=== PATIENT | female | born 1955 | race Caucasian/White ===

== ENCOUNTER → 2022-01-10 | Outpatient (CLI) | payer OTHER ==
--- NOTE | 2022-01-10 15:08 | RAD ---
Digital bilateral screening mammogram dated 01/10/2022. INDICATION: 66 years of age asymptomatic female patient presents for screening mammography. Screening TECHNIQUE: Digital 2-D MLO and cc views were obtained. tomography was not performed COMPARISON: 06/01/2016 08/08/2011. BREAST COMPOSITION: Category A: The breasts are predominantly fatty. FINDINGS: No suspicious mass or clustered microcalcification. No architectural distortion. Peripheral pattern i s stable. IMPRESSION: Stable bilateral mammogram RECOMMENDATION: Annual screening mammography is recommended, unless clinically indicated sooner based on symptoms or change in physical exam. BIRADS 1: NEGATIVE This study was interpreted with the benefit of Computerized Aided Detection (CAD). Recommend routine screening in one year. Patient information is entered into the reminder system with a target due date for the next screening mammogram. Mammography is the most sensitive method for finding small breast cancers, but it does not detect the m all and is not a substitute for careful clinical examination. A negative mammogram does not negate a clinically suspicious finding and should not result in delay in biopsying a clinically suspicious a bnormality. "Our facility is accredited by the [employer] Mammography Program." Electronically signed by: Drake Gu MD (01/10/2022 3:06 PM) [id number]
== END ==
LOC: MAMMO 13:32
PROVIDERS: ATTEND Family Medicine
DX: Z12.31 Encounter for screening mammogram for malignant neoplasm of breast (principal)
CPT/HCPCS: 77067